=== PATIENT | female | born 2005 | race African-American/Black ===

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

== ENCOUNTER 2023-05-10 07:52 | Observation (INO) | payer OTHER, SELFPAY ==
[2023-05-10] VITALS (8 sets, daily range): BP systolic 99–140; BP diastolic 55–90; PULSE 85–122; RESP 15–20; TEMP 36.6–37.5; O2SAT 97–100; BMI 20.4
--- NOTE | 2023-05-10 09:55 | ED.GENADULT ---
HPI - General Adult General Chief complaint: Abdominal Pain Stated complaint: ABD PAIN,NAUSEA,VOMITING X3 DAYS PER EMS Time Seen by Provider: 05/10/23 09:39 Source: patient Mode of arrival: ambulatory Limitations: no limitations History of Present Illness HPI narrative: 17 y o female no known pmhx presenting for evaluation of abdominal pain, nausea, vomiting, headache, cough, shortness of breath, and myalgias x4 days. Patient reports she woke up a few days ago with generalized lower abdominal pain and the need to vomit. Reports she has been experiencing constant, crampy lower abdominal pain with associated nausea and vomiting, last time she vomited was this morning last ate last night at dinner no appetite. She describes the emesis as watery in nature, yellow in color, denies blood. States that due to her nausea and vomiting, she has been having poor PO intake over the past few days. Patient also reports shortness of breath, states I haven't wheezed like this in a while and reports associated cough. Also states that last night right ear pain began without hearing changes, and a diffuse headache (worse in [place] region) w/ radiation to r jaw, patient denies trauma, denies visual symptoms. Denies sick contacts. Patient also reports LMP was more than a month ago but unsure of when, currently sexually active with 1 partner. Denies fever, chest pain, diarrhea, constipation, dizziness, falls, numbness of tingling. Related Data Home Medications Medication Instructions Recorded Confirmed No Known Home Meds 05/10/23 05/10/23 Allergies Allergy/AdvReac Type Severity Reaction Status Date / Time No Known Allergies Allergy Verified 06/11/22 07:18 Review of Systems Review of Systems: Constitutional : No Weight loss, No Fever, No Chills, No Fatigue, No Malaise ENT/Mouth : No sore throat, No Rhinorrhea Eyes: No Eye Pain, No Swelling, No Redness Cardiovascular : No Chest Pain, +SOB, No Dyspnea on Exertion, No Orthopnea, No Edema, No Palpitations Respiratory : +Cough, No Sputum, +Wheezing Gastrointestinal : +Nausea, +Vomiting, No Diarrhea, No Constipation, +abdominal Pain, No Hematochezia, No Melena Genitourinary : No Dysuria, No Urinary Frequency, No Hematuria Musculoskeletal : No joint pain, +Myalgias, No Joint Swelling Skin : No Skin Lesions, No rash Neuro : No Weakness, No Numbness, No Dizziness, + Headache Psych : No Anxiety/Panic, No Depression All other systems reviewed and are negative Yes all other systems are reviewed and are negative [facility] Past Medical History Attestation statement: The following information was validated with the patient. Source: old records reviewed and nursing notes reviewed Social History Social History Smoked in Last 30 Days: No Substance Use Type: Marijuana Advance Directives: No Patient : No Physical Exam ED Vital Signs: Vital Signs - 24 hr 05/10/23 08:04 05/10/23 12:00 05/10/23 14:30 Temperature 99.5 F 99.2 F 98.8 F Pulse Rate 110 H 113 H 106 H Respiratory Rate 16 18 18 Blood Pressure 113/78 117/78 99/55 L Pulse Oximetry 99 99 100 Oxygen Delivery Method Room Air Room Air Room Air BMI result Body Mass Index 20.4 VSS, slightly tachycardic Appearance: Alert.? Oriented X3.? No acute distress.? Head: Normocephalic, atraumatic, no step-offs or deformities + scalp tenderness Eyes: Pupils equal, round and reactive to light.? ENT: Pharynx normal.??External ears normal, TMs normal bilaterally and EAC's normal. No pain with manipulation of external ears bilaterally. No mastoid tenderness. Neck: Normal inspection.? Neck supple.? CVS: Normal heart rate and rhythm.? Pulses normal.? Respiratory: No respiratory distress, no tripoding, equal chest rise and fall, no tracheal deviation. Breath sounds present in all rose. Mild expiratory wheezing auscultated. Abdomen: Soft and nondistended. Diffusely TTP in all 4 quadrants worse in lower abd R>L, no rebound or guarding. No peritoneal signs. No suprapubic tenderness. Skin: Skin warm and dry.? Normal skin color.? Normal skin turgor.? Extremities: No lower extremity edema.? No calf ttp. 5/5 strength to bilateral upper and lower extremities Neuro: Oriented X 3.? No motor deficit.? No sensory deficit. CN 2-12 intact Course Reevaluation(s) Reevaluation #1: CBC with no acute findings. Chemistry no acute electrolyte abnormalities requiring acute intervention. Troponin negative, beta hCG negative. CRP 4.52. UA negative. CT pending. No need for head CT neuro nonfocal no trauma. Time: 11:37 Reevaluation #2: I did discuss this case with Dr. Lee, who states patient to follow-up with PCP this headache is likely secondary to viral illness, I asked the patient should go home with prednisone and he said no need at this time this is likely viral. Time: 11:54 Reevaluation #3: CT scan did show early appendicitis possibly, I did discuss this case with surgery Dr. Tabares who states unlikely appendicitis they will see patient while in the hospital. Plan at this time hospital admission. Time: 15:12 Medications Administered Discontinued Medications Generic Name Dose Route Start Last Admin Trade Name Freq PRN Reason Stop Dose Admin Acetaminophen 650 mg 05/10/23 09:55 05/10/23 11:46 Acetaminophen 325 Mg Tablet PO 05/10/23 09:56 650 mg ONCE ONE Administration Iohexol 100 ml 05/10/23 12:48 05/10/23 12:49 Iohexol 350 Mg/Ml 100 Ml Infus..Btl IV 05/10/23 12:49 85 ml ONCE ONE Administration Medical Decision Making Medical Decision Making [facility] Narrative: 1006 17 y o female presenting for evaluation of abdominal pain, nausea, vomiting, headache worse in temporal region w/ radiation to right jaw, cough, shortness of breath, and myalgias x4 days PE with abdomen soft and nondistended. Diffusely TTP in all 4 quadrants, no rebound or guarding. No peritoneal signs. No acute respiratory distress, however mild expiratory wheezing auscultated. Concern for influenza vs viral illness vs bronchitis vs pneumonia. I am not concerned for PE or pneumothorax, no acute respiratory distress, PERC negative. GI symptoms may be congruent with influenza vs gastroenteritis vs appendicitis vs vs vs ovarian cyst. Less likely pancreatitis vs cholecystitis, pt nontoxic appearing, does not report heavy alcohol use. I am not concerned for ovarian torsion or ectopic patient is nontoxic appearing, pain is diffuse throughout the abdomen, no peritoneal signs. I am not concerned for an acute abdomen, abdomen is soft with no peritoneal signs. No urinary symptoms or suprapubic tenderness to suggest a UTI vs pyelonephritis vs nephrolithiasis as the etiology of symptoms. No vaginal discharge or pelvic pain to suggest PID as etiology. Ear pain likely viral no signs of mastoiditis, OM, OE. I do not suspect an atypical presentation of ACS. Headache could be viral or possibly temporal arteritis due location and slight scalp tenderness on exam Plan -- Labs, UA, viral testing Differential Diagnosis Differential Diagnoses: The differential diagnosis associated with the presentation includes Concern for influenza vs viral illness vs bronchitis vs pneumonia. I am not concerned for PE or pneumothorax, no acute respiratory distress, PERC negative. GI symptoms may be congruent with influenza vs gastroenteritis vs appendicitis vs vs vs ovarian cyst. Less likely pancreatitis vs cholecystitis, pt nontoxic appearing, does not report heavy alcohol use. I am not concerned for ovarian torsion or ectopic patient is nontoxic appearing, pain is diffuse throughout the abdomen, no peritoneal signs. I am not concerned for an acute abdomen, abdomen is soft with no peritoneal signs. No urinary symptoms or suprapubic tenderness to suggest a UTI vs pyelonephritis vs nephrolithiasis as the etiology of symptoms. No vaginal discharge or pelvic pain to suggest PID as etiology. Ear pain likely viral no signs of mastoiditis, OM, OE. I do not suspect an atypical presentation of ACS. Headache could be viral or possibly temporal arteritis due location and slight scalp tenderness on exam Admission/Observation Consideration of admission/observation: Escalation of care including admission/observation considered Lab Data MDM Lab Attestation statement: I reviewed the patient's lab results. 05/10/23 08:14 05/10/23 08:14 Labs: Lab Results 05/10/23 05/10/23 05/10/23 Range/Units 08:14 10:43 11:40 WBC 10.8 (4.8-10.8) X10*3/uL RBC 4.30 (4.20-5.50) X10*6/uL Hgb 12.7 (12.0-16.0) g/dl Hct 37.5 (37.0-47.0) % MCV 87.2 (80.0-98.0) fL MCH 29.5 (27.0-33.0) pg MCHC 33.9 (31.0-35.0) g/dl RDW 13.2 (11.0-16.0) % Plt Count 264 D (160-400) X10*3/uL MPV 9.3 L (9.4-12.3) fL Immature Gran % (Auto) 0.3 (0.0-0.4) % Neut % (Auto) 87.6 H (45-73) % Lymph % (Auto) 4.6 L (20-40) % [place] % (Auto) 4.8 (2-11) % Eos % (Auto) 2.4 (0-4) % Baso % (Auto) 0.3 (0-2) % Lymph # (Auto) 0.5 L (1.2-4.9) X10*3/uL [place] # (Auto) 0.5 (0.1-1.2) X10*3/uL Eos # (Auto) 0.3 (0.0-0.4) X10*3/uL Baso # (Auto) 0.0 (0.0-0.2) X10*3/uL Abs Immat Gran (auto) 0.03 (0.00-0.03) X10*3/uL Absolute Neuts (auto) 9.5 H (2.0-8.3) x10*3/uL Absolute Nucleated RBC 0.000 (0.0-0.012) X10*3/uL Nucleated RBC % (auto) 0.0 (0.0-0.2) /100WBC ESR 18 (0-20) MM/HR Sodium 139 (135-145) mmol/L Potassium 4.0 (3.3-5.1) mmol/L Chloride 109 H (96-108) mmol/L Carbon Dioxide 18 L (22-29) mmol/L Anion Gap 16 (12-20) BUN 9 (9-16) mg/dL Creatinine 0.81 (0.5-1.4) mg/dL Estim Creat Clear Calc 104.0 Estimated GFR > 60 Random Glucose 118 H (60-115) mg/dL Calcium 10.2 D (8.4-10.2) mg/dL Troponin I High Sens < 2.7 (<3.5-17.0) ng/L C-Reactive Protein 4.52 H (< or = 0.50) mg/dL Beta HCG, Quant < 2 mIU/mL Urine Color Yellow Urine Appearance Clear Urine pH 7.5 (5.0-9.0) Ur Specific [place] 1.010 (1.005-1.025) Urine Protein Negative (Neg-Trace) mg/dL Urine Glucose (UA) Negative (Negative) mg/dL Urine Ketones 15 (Negative) mg/dL Urine Blood Negative (Negative) Urine Nitrite Negative (Negative) Ur Leukocyte Esterase Negative (Negative) Urine Test NEGATIVE (NEGATIVE) COVID-19 (KATHRYN) Negative (Negative) COVID-19 Clin Com See Note Influenza Type A (JOSE ALFREDO) Negative (Negative) Influenza Type B (JOSE ALFREDO) Negative (Negative) Influenza A & B Note See Note Independent Interpretation I performed an independent interpretation of an: CT Scan (CT/CT abdomen pelvis w IV con IMPRESSION: 1. Mild infiltration about the tip of the appendix, suggestive of early, mild or tip appendicitis. No abscess or drainable collection. This was reported by phone to Camilla POON at the time of interpretation on 05/10/2023 at 1:10 PM ) Radiology Impression Discussion of test interpretation with radiology: I have reviewed the radiologist's reading. Critical Care Time Critical Care Time Critical Care Time: Yes Total Critical Care Time: 45 Attestation: I attest to this time spent taking care of the patient, obtaining history, physical, reviewing labs, imaging, speaking to my attending, speaking to specialist. Discharge Plan Discharge Clinical Impression: Viral illness, Abdominal cramping, Headache Patient Disposition: Still a Patient
--- NOTE | 2023-05-10 14:51 | PC.NURSE ---
PT REFUSED MORPHINE STATING 0/10.
--- NOTE | 2023-05-10 14:51 | PM.IMHP ---
History of Present Illness Date of Service: 05/10/23 Chief Complaint: abd pain 17 y o female no known pmhx presenting for evaluation of abdominal pain, nausea, vomiting, headache, cough, shortness of breath, and myalgias x4 days. Patient reports she woke up a few days ago with generalized lower abdominal pain and the need to vomit. Reports she has been experiencing constant, crampy lower abdominal pain with associated nausea and vomiting, last time she vomited was this morning last ate last night at dinner no appetite. She describes the emesis as watery in nature, yellow in color, denies blood. States that due to her nausea and vomiting, she has been having poor PO intake over the past few days. Patient also reports shortness of breath, states I haven't wheezed like this in a while and reports associated cough. Also states that last night right ear pain began without hearing changes, and a diffuse headache (worse in [place] region) w/ radiation to r jaw, patient denies trauma, denies visual symptoms. Denies sick contacts. Patient also reports LMP was more than a month ago but unsure of when, currently sexually active with 1 partner. Denies fever, chest pain, diarrhea, constipation, dizziness, falls, numbness of tingling. Review of Systems Review of Systems: Denies chest pain Denies shortness of breath Denies nausea vomiting diarrhea Denies anorexia Denies fever chills PMFSH Social History Smoked in Last 30 Days: No Substance Use Type: Marijuana Advance Directives: No Patient : No Meds Allergies Allergy/AdvReac Type Severity Reaction Status Date / Time No Known Allergies Allergy Verified 06/11/22 07:18 Active Medications: Current Medications Piperacillin Sod/Tazobactam (Sod 4.5 gm/ Sodium Chloride) 100 mls @ 200 mls/hr IV Q6H BETO Lactated Ringer's (Lr) 1,000 mls @ 100 mls/hr IVCONT .Q10H BETO Ondansetron HCl (Ondansetron Hcl 4 Mg/2 Ml Vial) 4 mg IVPUSH Q6H BETO Sodium Chloride (0.9 % Sodium Chloride Flush 3 Ml Syringe) 3 ml IVFLUSH QSHIFT BETO Physical Exam Vital Signs and Narrative: Vital Signs: Last Vital Signs Temp 98.8 F 05/10/23 14:30 Pulse 106 H 05/10/23 14:30 Resp 18 05/10/23 14:30 BP 99/55 L 05/10/23 14:30 Pulse Ox 100 05/10/23 14:30 O2 Del Method Room Air 05/10/23 14:30 BMI result Body Mass Index 20.4 Const: Other: awake alert sitting quietly in stretc Resp: Other: clear to auscultation bilaterally no rales rhonchi or wheezes Cardio: Other: no S4; positive S1-S2; no S3 murmurs rubs or gallops GI: Other: soft nontender throughout all 4 quadrants; normoactive bowel sounds all quadrants. No rebound rigidity or guarding appreciated Neuro: Other: cranial nerves 2-12 grossly intact as tested. Motor is 5/5 in all extremities. Sensation is intact. Cognition appropriate Extrem: Other: no edema bilaterally Results Labs 05/10/23 08:14 05/10/23 08:14 Labs: Laboratory Results - last 24 hr 05/10/23 05/10/23 05/10/23 08:14 10:43 11:40 MCV 87.2 MCH 29.5 MCHC 33.9 RDW 13.2 Plt Count 264 D MPV 9.3 L Immature Gran % (Auto) 0.3 Neut % (Auto) 87.6 H Lymph % (Auto) 4.6 L [place] % (Auto) 4.8 Eos % (Auto) 2.4 Baso % (Auto) 0.3 Lymph # (Auto) 0.5 L [place] # (Auto) 0.5 Eos # (Auto) 0.3 Baso # (Auto) 0.0 Abs Immat Gran (auto) 0.03 Absolute Neuts (auto) 9.5 H Absolute Nucleated RBC 0.000 Nucleated RBC % (auto) 0.0 ESR 18 Anion Gap 16 Estim Creat Clear Calc 104.0 Estimated GFR > 60 Random Glucose 118 H Calcium 10.2 D C-Reactive Protein 4.52 H Beta HCG, Quant < 2 Urine Color Yellow Urine Appearance Clear Urine pH 7.5 Ur Specific [place] 1.010 Urine Protein Negative Urine Glucose (UA) Negative Urine Ketones 15 Urine Blood Negative Urine Nitrite Negative Ur Leukocyte Esterase Negative Urine Test NEGATIVE COVID-19 (KATHRYN) Negative COVID-19 Clin Com See Note Influenza Type A (JOSE ALFREDO) Negative Influenza Type B (JOSE ALFREDO) Negative Influenza A & B Note See Note Imaging Radiologist's Impressions: Impressions Abdomen/Pelvis CT 05/10/23 12:49 IMPRESSION: 1. Mild infiltration about the tip of the appendix, suggestive of early, mild or tip appendicitis. No abscess or drainable collection. This was reported by phone to Camilla POON at the time of interpretation on 05/10/2023 at 1:10 PM Fleischner guidelines were followed. Assessment and Plan (1) Abdominal cramping: Status: Acute Plan 17-year-old female presents with 24 hours a diffuse lower abdominal crampy pain. emergency room, white count normal. CT with questionable mild inflammation at the tip of the appendix suggestive of early appendicitis. Will admit observation with surgical consult in a.m. 1.Abdominal PAin - exam does not support appendicitis - will observe overnight; IV fluids empiric antibiotics - repeat CBC in a.m. - surgical consult in a.m. requires 1 night of hospitalization to rule out appendicitis full code boots Time Spent With Patient Time: Total time managing care of this patient today ____ minutes. Quality Stroke Does the patient have a stroke diagnosis?: No VTE Prior VTE?: No VTE Risk Level:: Medical - moderate - high VTE Device Contraindication: N/A - Device Ordered VTE Drug Contraindication: Treatment Not Indicated
--- NOTE | 2023-05-11 06:46 | PHA.MEDREC ---
Pharmacy Consult ? Medication Reconciliation Pharmacy has completed the medication reconciliation. MED REC DONE BY DMITRY ON 05/10/23
--- NOTE | 2023-05-11 07:42 | PM.CNGS ---
History of Present Illness Consult details Consult date: 05/11/23 Reason for consult: abdominal pain Requesting physician: Epifanio Cooley Narrative: 17-year-old female patient presenting with a 4 day history of abdominal pain, nausea and vomiting. She denies any sick contacts or eating any unusual food. She subsequently presented to the emergency department and was noted to be tender in all 4 quadrants of her abdomen. Laboratories revealed normal WBC of 10. Subsequent CT abdomen and pelvis however revealed mild inflammatory changes at the tip of the appendix suggestive of an early appendicitis. This morning she feels much improved with no abdominal pain fever or chills. She is hungry denies any further nausea. Review of Systems Review of Systems: Yes all other systems are reviewed and are negative Constitutional: Constitutional: Denies chills, Denies fever(s), Denies headache(s), Denies poor appetite and Denies weakness ENT: Denies headache(s) Cardiovascular: Cardiovascular: Denies chest pain, Denies irregular heart rhythm, Denies palpitations and Denies dyspnea Respiratory: Respiratory: Denies cough, Denies excessive phlegm production and Denies dyspnea Gastrointestinal: Gastrointestinal: Denies abdominal pain, Denies bloating, Denies change in bowel habits, Denies constipation, Denies heartburn, Denies diarrhea, Denies nausea and Denies vomiting Genitourinary: Genitourinary: Denies urinary frequency Musculoskeletal: Musculoskeletal: Denies back pain, Denies muscle weakness and Denies numbness Integumentary/Breasts: Skin/Breast: Denies changing lesions and Denies unusual bruising Neurologic: Denies headache(s), Denies numbness, Denies paresthesias and Denies weakness Psychiatric: Psychiatric: Denies anxiety and Denies depression Endocrine: Endocrine: Denies palpitations Hematologic/Lymphatic: Hematologic/Lymphatic: Denies lymphadenopathy [facility] Social History Social History Patient Tobacco Use Status: Current someday Tobacco user Tobacco use type: Cigarette Substance Use Type: Marijuana Meds Allergies Allergy/AdvReac Type Severity Reaction Status Date / Time No Known Allergies Allergy Verified 06/11/22 07:18 Active Medications: Current Medications Piperacillin Sod/Tazobactam (Sod 4.5 gm/ Sodium Chloride) 100 mls @ 200 mls/hr IV Q6H BETO Last Infusion: 05/11/23 05:25 Dose: Infused Ketorolac Tromethamine (Ketorolac Tromethamine 15 Mg/Ml Vial) 15 mg IVPUSH Q6H PRN PRN Reason: Pain, Moderate(Pain Scale 4-6) Last Admin: 05/11/23 02:02 Dose: 15 mg Ondansetron HCl (Ondansetron Hcl 4 Mg/2 Ml Vial) 4 mg IVPUSH Q6H [facility] Last Admin: 05/11/23 04:38 Dose: 4 mg Sodium Chloride (0.9 % Sodium Chloride Flush 3 Ml Syringe) 3 ml IVFLUSH QSHIFT [facility] Last Admin: 05/10/23 20:02 Dose: 3 ml Home Medications Medication Instructions Recorded Confirmed Last Taken Type No Known Home Meds 05/10/23 05/10/23 Unknown History Physical Exam Vital Signs: Vital Signs: Last Vital Signs Temp 97.8 F 05/10/23 23:59 Pulse 90 05/10/23 23:59 Resp 18 05/10/23 23:59 BP 100/55 L 05/10/23 23:59 Pulse Ox 97 05/10/23 23:59 O2 Del Method Room Air 05/10/23 23:59 BMI result Body Mass Index 20.4 Const: General: cooperative and no acute distress Nutritional Appearance: well nourished Orientation/consciousness: patient oriented x3 Limitations: no limitations HEENT: Head: Yes normocephalic and Yes atraumatic Ears: hearing grossly normal bilaterally Resp: Effort & Inspection: normal respiratory effort, no audible wheezes, no cough and no respiratory distress Cardio: Jugular venous distension: no JVD GI: Other: Soft, nondistended, nontender to deep palpation. No rebound , guarding or rigidity. Inspection: Yes normal to inspection Skin: Other: Warm, dry, no rash Neuro: General: patient oriented x3 Extrem: General: Yes no clubbing, cyanosis or edema Results Labs 05/11/23 05:13 05/11/23 05:13 Labs: Abnormal lab results 05/10/23 05/11/23 Range/Units 08:14 05:13 RBC 3.60 L (4.20-5.50) X10*6/uL Hgb 10.6 L (12.0-16.0) g/dl Hct 32.1 L (37.0-47.0) % MPV 9.3 L (9.4-12.3) fL Neut % (Auto) 87.6 H (45-73) % Lymph % (Auto) 4.6 L 15.3 L (20-40) % Eos % (Auto) 6.1 H (0-4) % Lymph # (Auto) 0.5 L 1.1 L (1.2-4.9) X10*3/uL Absolute Neuts (auto) 9.5 H (2.0-8.3) x10*3/uL Chloride 109 H 112 H (96-108) mmol/L Carbon Dioxide 18 L 17 L (22-29) mmol/L BUN 6 L (9-16) mg/dL Random Glucose 118 H (60-115) mg/dL C-Reactive Protein 4.52 H (< or = 0.50) mg/dL Short CBC 05/10/23 05/11/23 Range/Units 08:14 05:13 WBC 10.8 6.9 (4.8-10.8) X10*3/uL Hgb 12.7 10.6 L (12.0-16.0) g/dl Hct 37.5 32.1 L (37.0-47.0) % Plt Count 264 D 206 (160-400) X10*3/uL BMP 05/10/23 05/11/23 08:14 05:13 Sodium 139 139 Potassium 4.0 3.9 Chloride 109 H 112 H Carbon Dioxide 18 L 17 L BUN 9 6 L Creatinine 0.81 0.73 Calcium 10.2 D 8.6 D Liver Function 05/11/23 Range/Units 05:13 Total Bilirubin 0.7 (0.0-1.0) mg/dL AST 12 (5-31) U/L ALT < 5 (0-31) U/L Alkaline Phosphatase 49 (39-117) U/L Albumin 3.9 (3.5-5.0) g/dL Urine 05/10/23 Range/Units 10:43 Urine Color Yellow Urine Appearance Clear Urine pH 7.5 (5.0-9.0) Ur Specific [place] 1.010 (1.005-1.025) Urine Protein Negative (Neg-Trace) mg/dL Urine Glucose (UA) Negative (Negative) mg/dL Urine Test NEGATIVE (NEGATIVE) All other labs normal. Assessment and Plan (1) Abdominal cramping: Status: Acute (2) Viral illness: Status: Acute Plan 17-year-old female patient presenting with a acute history of abdominal pain now resolved. CT reviewed and reveals very mild findings considering 4 day history of abdominal pain. Findings most suggestive of a viral illness. Recommend starting a diet and if tolerated discharge to home. Follow-up with surgery as needed. Time Spent With Patient Time: Total time managing care of this patient today ____ minutes. Procedures Date of Service Date of Service: 05/11/23
[2023-05-11 08:00] VITALS: BP 110/65; PULSE 74; RESP 18; TEMP 36.1; O2SAT 99
--- NOTE | 2023-05-11 11:39 | PM.DS ---
DS: Providers Provider Date of Service: 05/11/23 Date of admission: 05/10/23 14:42 Date of discharge: 05/11/23 Primary care physician: None Physician Consults: 05/10/23 14:50 Consult to General Surgery Routine Consulting Provider: [facility] [place] General Surgeons Reason for consultation: Abd pain Has provider been notified: Yes DS: Diagnosis Discharge Diagnosis (1) Abdominal cramping: Status: Acute (2) Viral illness: Status: Acute DS: Summary Hospital Course Hospital Course: 17 y o female no known pmhx presenting for evaluation of abdominal pain, nausea, vomiting, headache, cough, shortness of breath, and myalgias x4 days. Patient reports she woke up a few days ago with generalized lower abdominal pain and the need to vomit. Reports she has been experiencing constant, crampy lower abdominal pain with associated nausea and vomiting, last time she vomited was this morning last ate last night at dinner no appetite. She describes the emesis as watery in nature, yellow in color, denies blood. States that due to her nausea and vomiting, she has been having poor PO intake over the past few days. Patient also reports shortness of breath, states I haven't wheezed like this in a while and reports associated cough. Also states that last night right ear pain began without hearing changes, and a diffuse headache (worse in mosque region) w/ radiation to r jaw, patient denies trauma, denies visual symptoms. Denies sick contacts. Patient also reports LMP was more than a month ago but unsure of when, currently sexually active with 1 partner. Denies fever, chest pain, diarrhea, constipation, dizziness, falls, numbness of tingling. Hospital Course Admitted to general medical floor and kept NPO overnight. Exam remained benign this morning. Seen by surgery who felt this was related to viral illness and not appendicitis. Patient given regular diet and tolerated well. At this point she was discharged to home and will be given a script for Motrin p.r.n. for her pain. She was strongly advised to quit smoking and vaping Time Spent with Patient Time attestation: Total time managing care of this patient today ____ minutes. Discharge coordination time: Greater than 30 minutes Quality: Safe Use of Opioids Does Pt have an Active Cancer Diagnosis on the Problem List?: No Quality: Stroke Does the patient have a stroke diagnosis?: No Physical Exam Vital Signs: Vital Signs: Last Vital Signs Temp 97.0 F 05/11/23 08:00 Pulse 74 05/11/23 08:00 Resp 18 05/11/23 08:00 BP 110/65 05/11/23 08:00 Pulse Ox 99 05/11/23 08:00 O2 Del Method Room Air 05/11/23 08:00 BMI result Body Mass Index 20.4 Const: Other: awake alert sitting quietly in stretc Resp: Other: clear to auscultation bilaterally no rales rhonchi or wheezes Cardio: Other: no S4; positive S1-S2; no S3 murmurs rubs or gallops GI: Other: soft nontender throughout all 4 quadrants; normoactive bowel sounds all quadrants. No rebound rigidity or guarding appreciated Neuro: Other: cranial nerves 2-12 grossly intact as tested. Motor is 5/5 in all extremities. Sensation is intact. Cognition appropriate Extrem: Other: no edema bilaterally DS: Data Data Completed and Pending Labs on day of discharge: Laboratory Results - last 24 hr 05/10/23 05/10/23 05/11/23 08:14 11:40 05:13 WBC 6.9 RBC 3.60 L Hgb 10.6 L Hct 32.1 L MCV 89.2 MCH 29.4 MCHC 33.0 RDW 13.2 Plt Count 206 MPV 9.6 Immature Gran % (Auto) 0.1 Neut % (Auto) 69.9 Lymph % (Auto) 15.3 L Cooper % (Auto) 8.2 Eos % (Auto) 6.1 H Baso % (Auto) 0.4 Lymph # (Auto) 1.1 L Cooper # (Auto) 0.6 Eos # (Auto) 0.4 Baso # (Auto) 0.0 Abs Immat Gran (auto) 0.01 Absolute Neuts (auto) 4.8 Absolute Nucleated RBC 0.000 Nucleated RBC % (auto) 0.0 ESR 18 Sodium 139 Potassium 3.9 Chloride 112 H Carbon Dioxide 17 L Anion Gap 14 BUN 6 L Creatinine 0.73 Estim Creat Clear Calc 115.3 Estimated GFR > 60 Fasting Glucose 80 Calcium 8.6 D Total Bilirubin 0.7 AST 12 ALT < 5 Alkaline Phosphatase 49 Total Protein 6.7 Albumin 3.9 COVID-19 ([facility]) Negative COVID-19 Clin Com See Note Discharge Plan Discharge Anticipated Discharge Date/Time: 05/11/23 11:32 Patient Disposition: Home, Self-Care Discharge Diagnosis: Abd pain Referrals: Physician,None [Primary Care Provider] - 1 Week Discharge Medications: New ibuprofen 600 mg tablet 600 mg PO TID PRN (Reason: pain) Qty: 30 0RF Discharge Orders: Discharge Order (Routine); Ordered 05/11/23 Ordered By: Epifanio Cooley Diet: Advance to usual diet Activity on Discharge: As tolerated Stand Alone Forms: Patient Portal Discharge page Care Plan Goals: Utilize Motrin for pain. Take with food as prescribed Health Concerns: Your abdominal pain was likely related to a viral illness. If symptoms worsen return to the emergency room Plan of Treatment: Quit smoking/vaping Assessment: See discharge summary
--- NOTE | 2023-05-11 13:20 | MHC.CM.PN ---
PT REPORTS SHE LIVES WITH ROOMMATES AND IS INDEPENDENT WITH CARE SHE DENIES USE OF DME OR HOME SERVICES PT DECLINES TO COMPLETE A HCP SHE HAS NO PCP, EDUCATION PROVIDED, SHE REPORTS SHE WILL OBTAIN ONE ON HER OWN PT WILL DC HOME TODAY WITH NO SERVICES VIA PRIVATE TRANSPORT
== END 2023-05-11 13:01 | disposition home or self-care (01) ==
LOC: HO.ED 13:18 → HO.EDOVER 14:54 → HO.S3 16:28
PROVIDERS: Admitting Provider Hospitalist; Emergency Provider Emergency Medicine; Visit Provider Hospitalist
DX: R10.30 Lower abdominal pain, unspecified (principal); B34.9 Viral infection, unspecified; R11.10 Vomiting, unspecified; R11.2 Nausea with vomiting, unspecified; R51.9 Headache, unspecified; R05.9 Cough, unspecified; R06.02 Shortness of breath; M79.10 Myalgia, unspecified site; Z11.52 Encounter for screening for COVID-19
CPT/HCPCS: 36415; 74177; 80048; 80053; 81003; 81025; 84484; 84702; 85025; 85652; 86140; 87502; 87635; 96361; 96365; 96366; 96375; 96376; 99221; 99285; J1885; J2405; J2543; Q9967

== ENCOUNTER → 2023-05-10 14:42 | Outpatient (BNV) | payer OTHER, SELFPAY | PROVIDERS: Admitting Provider Hospitalist; Emergency Provider Emergency Medicine; Visit Provider Surgery | DX: R10.9 Unspecified abdominal pain (principal); B34.9 Viral infection, unspecified | CPT/HCPCS: 99221 ==

== ENCOUNTER → 2023-05-10 14:42 | Outpatient (BNV) | payer OTHER, SELFPAY | PROVIDERS: Admitting Provider Hospitalist; Emergency Provider Emergency Medicine; Visit Provider Hospitalist | DX: R10.9 Unspecified abdominal pain (principal); B34.9 Viral infection, unspecified | CPT/HCPCS: 99223; 99239 ==